=== PATIENT | male | born 1970 | race Caucasian/White ===

== ENCOUNTER 2017-05-22 01:30 | Outpatient (CLI) | payer BC | END 2017-05-22 01:31 | disposition home or self-care (01) | LOC: BICRAD 01:30 | PROVIDERS: ATTEND Internal Medicine Rheumatology | DX: I10 Essential (primary) hypertension (principal) | CPT/HCPCS: 71020 ==

== ENCOUNTER 2018-08-25 15:30 | Outpatient (CLI) | payer BC ==
--- NOTE | 2018-08-25 16:06 | RAD ---
CHEST TWO VIEWS: History: Dyspnea. Comparison: 05-22-17 FINDINGS: Lungs appear clear of infiltrate. Heart size is mildly prominent, but stable. Vascular markings are u nremarkable. IMPRESSION: No acute finding or interval change. POS: [facility]
== END 2018-08-25 15:31 | disposition home or self-care (01) ==
LOC: BICRAD 15:30
PROVIDERS: ATTEND Internal Medicine Rheumatology
DX: R06.00 Dyspnea, unspecified (principal)
CPT/HCPCS: 71046

== ENCOUNTER 2018-10-16 08:45 | Day surgery (SDC) | payer BC ==
[2018-10-15 12:06] VITALS: BMI 41.2
[2018-10-16] MEDS ORDERED: PROPOFOL 200 MG/20 ML VIAL ONE (14:54)
--- NOTE | 2018-10-16 18:02 | OP ---
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 PROCEDURES: 1. Esophagogastroduodenoscopy with biopsies. 2. Colonoscopy, diagnostic. INDICATIONS: A 48-year-old man with progressive abdominal bloating and distention, chronic GERD, and complaint of recently decreased stool caliber. This is all in the context of recent rapid weight gain and increasing shortness of breath. CT of the abdomen and pelvis demonstrated small renal cell carcinoma for which surgery is planned, but this is not thought to underlie his recent symptoms. MEDICATIONS: See Anesthesia record. FINDINGS: After discussion of the risks, benefits, and alternatives of the procedure, informed consent was obtained and witnessed. Pre-endoscopic cardiopulmonary examination was satisfactory. Time-out was performed before sedation was achieved. Sedation was achieved with Anesthesia assistance in the endoscopy unit. A Pentax adult upper endoscope was placed into the oropharynx and passed through the cricopharyngeus under direct visualization. The esophageal mucosa appeared normal throughout with a normal-appearing Z-line at 44 cm from the incisors. The endoscope was advanced into the stomach. Forward and retroflexed views of the entire gastric mucosa were obtained. In the gastric antrum, there was some patchy mild erythema as well as several small hyperplastic-appearing polyps. Multiple biopsies were obtained from the gastric antrum and body to rule out H pylori infection. The endoscope was advanced through the pylorus and into the first and second portions of the duodenum, which appeared normal. The upper endoscope was completely withdrawn and the patient was repositioned. Digital rectal exam was performed, which was unremarkable. A Pentax adult colonoscope was inserted into the anus and passed forward to the cecum in the usual fashion. The cecal base was identified by the appendiceal orifice as well as the ileocecal valve. The terminal ileum was not intubated. The colonoscope was slowly withdrawn in a gradual circumferential manner with careful examination of the entire colonic mucosa. The quality of the preparation was only fair throughout the colon. There was a significant amount of murky liquid stool throughout the colon with extensive irrigation and suctioning. The preparation was adequate for our purposes and to rule out any polyps greater than 5 mm in size. The colonic mucosa appeared normal throughout. There was no evidence of any inflammatory disease. No structural abnormalities. No polyps visualized. There were a few scattered diverticula. Retroflexion in the rectum demonstrates internal hemorrhoids. The colonoscope was completely withdrawn and the patient allowed to recover. The patient tolerated the procedure well. There were no immediate postprocedure complications. IMPRESSION: 1. Mild antral gastritis with few small hyperplastic-appearing antral polyps. Biopsied, to rule out Helicobacter pylori. 2. Otherwise, normal esophagogastroduodenoscopy. 3. Fair colon preparation. 4. Internal hemorrhoids. 5. Otherwise, normal colonoscopy to the cecum. RECOMMENDATIONS: 1. Follow up pathology on the gastric biopsies. 2. 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 We will send in prescription for rifaximin 550 mg by mouth 3 times per day for 7-day course. 3. Follow up in the [facility] in 1 month, after his upcoming surgery for renal cell carcinoma. 4. We will plan to repeat colonoscopy at a 5-year interval. Job ID: [id number]
== END 2018-10-16 12:38 | disposition home or self-care (01) ==
LOC: SDC 08:45
PROVIDERS: ATTEND Internal Medicine
PROC: 0DJD8ZZ Inspection of Lower Intestinal Tract, Via Natural or Artificial Opening Endoscopic (ICD-10-PCS; principal; 2018-10-16)
PROC: 0DD68ZX Extraction of Stomach, Via Natural or Artificial Opening Endoscopic, Diagnostic (ICD-10-PCS; principal; 2018-10-16)
DX: R19.4 Change in bowel habit (principal); K64.8 Other hemorrhoids; R14.0 Abdominal distension (gaseous); K21.9 Gastro-esophageal reflux disease without esophagitis; K31.7 Polyp of stomach and duodenum; K29.50 Unspecified chronic gastritis without bleeding; R63.5 Abnormal weight gain; E11.9 Type 2 diabetes mellitus without complications; E78.00 Pure hypercholesterolemia, unspecified; M19.90 Unspecified osteoarthritis, unspecified site; Z68.41 Body mass index [BMI] 40.0-44.9, adult; Z79.82 Long term (current) use of aspirin; Z79.899 Other long term (current) drug therapy; Z88.0 Allergy status to penicillin
CPT/HCPCS: 88305; 88312; J2704